=== PATIENT | female | born 1995 | race Caucasian/White ===

== ENCOUNTER 2016-10-10 07:21 | Emergency (ER) | payer BC, MEDICAID ==
[2016-10-10 07:34] VITALS: BP 106/65
[2016-10-10] MEDS ORDERED: predniSONE TAB* 20 MG PO ONE (07:47)
[2016-10-10] MEDS ORDERED: Albuterol/Ipratropium NEB.SOL* Albuterol 2.5 MG/Ipratropium 0.5 MG 3 ML INH ONE (07:47)
--- NOTE | 2016-10-10 07:57 | UC ---
Respiratory Complaint HPI - HPI Summary HPI Summary: coughing and wheezing for 3d. Started with malaise, SRINIVASAN, ST, body aches. Now sinus congestion and deep cough. Fevers, not measured. Poor appetite but is able to eat and drink. Has history of wheezing with URI's, no formal dx of asthma but uses prn inhaler. - History of Current Complaint Chief Complaint: UCGeneralIllness Stated Complaint: CHEST CONGESTION COUGH SORE THROAT Time Seen by Provider: 10/10/16 07:38 Hx Obtained From: Patient Hx Last Menstrual Period: 09/22/16 Onset/Duration: Gradual Onset Timing: Constant Severity Initially: Moderate Severity Currently: Moderate Character: Cough: Productive Aggravating Factors: Nothing Alleviating Factors: Bronchodilator - ran out Associated Signs And Symptoms: Positive: Dyspnea, Fever, Chills, Wheezing, URI, Nasal Congestion, Hoarseness - Risk Factors Pulmonary Embolism Risk Factors: Negative Cardiac Risk Factors: Negative Pseudomonas Risk Factors: Negative Tuberculosis Risk Factors: Negative - Allergies/Home Medications Allergies/Adverse Reactions: Allergies Allergy/AdvReac Type Severity Reaction Status Date / Time No Known Allergies Allergy Verified 10/10/16 07:27 PMH/Surg Hx/FS Hx/Imm Hx Endocrine History Of: Reports: Thyroid Disease, Hypothyroidism Denies: Diabetes Cardiovascular History Of: Denies: Hypertension, Pacemaker/ICD Respiratory History Of: Reports: Asthma - Surgical History Surgical History: None - Family History Known Family History: Positive: None Family History: no cardio-vascular issues reported in family lineage - Social History Occupation: Employed Full-time Lives: With Family Alcohol Use: Weekly Alcohol Amount: 4-5 drinks few drinks a month Substance Use Type: None Smoking Status (MU): Never Smoked Tobacco - Immunization History Most Recent Influenza Vaccination: 2014 Most Recent Tetanus Shot: utd Most Recent Pneumonia Vaccination: none Review of Systems Constitutional: Fever, Chills, Fatigue Skin: Negative Eyes: Negative ENT: Sore Throat, Nasal Discharge Respiratory: Shortness Of Breath, Cough Cardiovascular: Negative Gastrointestinal: Negative Genitourinary: Negative Motor: Negative Neurovascular: Negative Musculoskeletal: Negative Neurological: Headache Psychological: Negative All Other Systems Reviewed And Are Negative: Yes Physical Exam Triage Information Reviewed: Yes Appearance: Well-Appearing, No Pain Distress, Well-Nourished, Thin Vital Signs: Initial Vital Signs Temp 99.3 F 10/10/16 07:29 Pulse 92 10/10/16 07:29 Resp 18 10/10/16 07:29 BP 106/65 10/10/16 07:29 Pulse Ox 98 10/10/16 07:29 Vital Signs Reviewed: Yes Eye Exam: Normal Eyes: Positive: Conjunctiva Clear ENT: Positive: Hearing grossly normal, Pharynx normal, Nasal congestion, TMs normal, Muffled/hoarse voice - hoarse. Negative: Pharyngeal erythema, Tonsillar swelling, Tonsillar exudate Neck exam: Normal Neck: Positive: Supple Respiratory Exam: Normal Respiratory: Positive: No respiratory distress, No accessory muscle use, Rhonchi , Wheezing - diffuse. Negative: Crackles, Stridor Cardiovascular Exam: Normal Musculoskeletal Exam: Normal Neurological Exam: Normal Psychological Exam: Normal Skin Exam: Normal UC Diagnostic Evaluation - Laboratory O2 Sat by Pulse Oximetry: 98 Respiratory Course/Dx - Differential Dx/Diagnosis Differential Diagnosis/HQI/PQRI: Asthma, Bronchitis, Influenza, Lower Resp Infection, Sinusitis Provider Diagnoses: URI with bronchospasm Discharge - Discharge Plan Condition: Stable Disposition: HOME Prescriptions: Albuterol HFA INHALER* [Ventolin HFA Inhaler*] 1 - 2 puff INH Q4H PRN #1 mdi PRN Reason: Wheezing Guaifenesin-Codeine [Cheratussin AC] 1 - 2 syp PO Q4HR PRN #120 ml MDD 30ml PRN Reason: Cough predniSONE TAB* [Deltasone TAB*] 20 mg PO DAILY #9 tab Patient Education Materials: Upper Respiratory Infection (ED), Bronchospasm (ED ) Forms: *Work Release Referrals: No Primary Care Phys,NOPCP [Primary Care Provider] -
== END 2016-10-10 08:20 | disposition home or self-care (01) ==
LOC: UCEAST 07:21
DX: J06.9 Acute upper respiratory infection, unspecified (principal); J98.01 Acute bronchospasm
CPT/HCPCS: 99212; A9270-GY; G0463; J7512

== ENCOUNTER 2016-11-27 18:23 | Emergency (ER) | payer BC, MEDICAID ==
[2016-11-27 19:43] VITALS: BP 96/55
[2016-11-27] MEDS ORDERED: Ibuprofen TAB* 600 MG PO ONE (19:46)
--- NOTE | 2016-11-27 20:09 | UC ---
Upper Extremity HPI - HPI Summary HPI Summary: Large cardboard box full of gloves fell onto pt's R wrist while at work at [employer] earlier today. Pain and bruising, difficulty using hand. No hx of surgery or fx in that hand/wrist. - History of Current Complaint Chief Complaint: UCUpperExtremity Stated Complaint: HAND INJURY Time Seen by Provider: 11/27/16 19:51 Hx Obtained From: Patient Hx Last Menstrual Period: 10/13/16 ?: No Onset/Duration: Sudden Onset Severity Initially: Moderate Severity Currently: Moderate Location Of Pain: Is Discrete @ Character: Sharp, Stiffness Aggravating Factor(s): Movement, Lifting Alleviating Factor(s): Ice, Rest Related History: Dominant Hand Right - Allergies/Home Medications Allergies/Adverse Reactions: Allergies Allergy/AdvReac Type Severity Reaction Status Date / Time No Known Allergies Allergy Verified 11/27/16 19:43 PMH/Surg Hx/FS Hx/Imm Hx Endocrine History Of: Reports: Thyroid Disease - HYPOTHYROID, Hypothyroidism Denies: Diabetes Cardiovascular History Of: Denies: Hypertension, Pacemaker/ICD Respiratory History Of: Reports: Asthma - NOT OFFICIALLY DX - Surgical History Surgical History: Yes Surgery Procedure, Year, and Place: RENAL STENT 2009 - Family History Known Family History: Positive: None Family History: no cardio-vascular issues reported in family lineage - Social History Occupation: Employed Part-time Lives: With Family Alcohol Use: None Alcohol Amount: 3-4 DRINKS/WEEK Substance Use Type: None Smoking Status (MU): Never Smoked Tobacco - Immunization History Most Recent Influenza Vaccination: 2014 Most Recent Tetanus Shot: utd Most Recent Pneumonia Vaccination: none Review of Systems Constitutional: Negative Skin: Bruising Eyes: Negative ENT: Negative Respiratory: Negative Cardiovascular: Negative Gastrointestinal: Negative Genitourinary: Negative Motor: Negative Neurovascular: Negative Musculoskeletal: Arthralgia Neurological: Negative Psychological: Negative All Other Systems Reviewed And Are Negative: Yes Physical Exam Triage Information Reviewed: Yes Appearance: Well-Appearing, Well-Nourished, Pain Distress - mild Vital Signs: Initial Vital Signs Temp 97.9 F 11/27/16 19:40 Pulse 67 11/27/16 19:40 Resp 16 11/27/16 19:40 BP 96/55 11/27/16 19:40 Pulse Ox 100 11/27/16 19:40 Vital Signs Reviewed: Yes Eye Exam: Normal Eyes: Positive: Conjunctiva Clear ENT Exam: Normal ENT: Positive: Normal ENT inspection, Hearing grossly normal, Pharynx normal, TMs normal Dental Exam: Normal Respiratory Exam: Normal Respiratory: Positive: Chest non-tender, Lungs clear, Normal breath sounds, No respiratory distress, No accessory muscle use Cardiovascular Exam: Normal Cardiovascular: Positive: RRR, No Murmur Musculoskeletal: Positive: 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
--- NOTE | 2016-11-27 20:19 | RAD ---
Indication: Right wrist injury 3 views of the wrist demonstrates no fracture. No other bone or joint abnormality is identified. IMPRESSION: NO FRACTURE OF THE WRIST IS NOTED.
== END 2016-11-27 20:35 | disposition home or self-care (01) ==
LOC: UCEAST 18:23
DX: S60.211A Contusion of right wrist, initial encounter (principal); W20.8XXA Other cause of strike by thrown, projected or falling object, initial encounter; Y93.9 Activity, unspecified; Y92.511 Restaurant or cafe as the place of occurrence of the external cause; Y99.0 Civilian activity done for income or pay
CPT/HCPCS: 99212; A9270-GY; G0463

== ENCOUNTER 2017-08-04 11:53 | Emergency (ER) | payer BC ==
[2017-08-04 12:11] VITALS: BP 109/56
[2017-08-04] MEDS ORDERED: predniSONE TAB* 20 MG PO ONE (12:19)
[2017-08-04] MEDS ORDERED: Ipratropium 0.5MG/2.5ML NEB* 0.5 MG/2.5 ML NEB.SOLN INH ONE (12:19)
[2017-08-04] MEDS ORDERED: Albuterol 2.5 MG/3 ML NEB.SOL* (0.083%) INH ONE (12:19)
--- NOTE | 2017-08-04 12:19 | UC ---
Respiratory Complaint HPI - HPI Summary HPI Summary: 21 yo female with one day hx of cough/wheezing rescue inhaler not effective no f/c - History of Current Complaint Chief Complaint: UCRespiratory Stated Complaint: SOB Time Seen by Provider: 08/04/17 11:54 Hx Obtained From: Patient Hx Last Menstrual Period: 07/17/17 Onset/Duration: Gradual Onset, Lasting Hours Timing: Constant Severity Initially: Mild Severity Currently: Moderate Pain Intensity: 2 Pain Scale Used: 0-10 Numeric Character: Cough: Nonproductive Associated Signs And Symptoms: Positive: Wheezing, Nasal Congestion - Allergies/Home Medications Allergies/Adverse Reactions: Allergies Allergy/AdvReac Type Severity Reaction Status Date / Time No Known Environmental Allergy WHEEZING, Verified 08/04/17 12:15 Allergies SOB PMH/Surg Hx/FS Hx/Imm Hx Previously Healthy: Yes Endocrine History: Hypothyroidism Other Endocrine History: hosimoto's Respiratory History: Asthma, Pneumonia - Surgical History Surgical History: Yes Surgery Procedure, Year, and Place: RENAL STENT 2009 - Family History Known Family History: Positive: Respiratory Disease, Other - thyroid problems Family History: no cardio-vascular issues reported in family lineage - Social History Alcohol Use: None Alcohol Amount: 3-4 DRINKS/WEEK Substance Use Type: None Smoking Status (MU): Never Smoked Tobacco - Immunization History Most Recent Influenza Vaccination: 2014 Most Recent Tetanus Shot: utd Most Recent Pneumonia Vaccination: none Review of Systems Constitutional: Negative Skin: Negative Eyes: Negative ENT: Negative Respiratory: Shortness Of Breath, Cough Cardiovascular: Negative Gastrointestinal: Negative Genitourinary: Negative Motor: Negative Neurovascular: Negative Musculoskeletal: Negative Neurological: Negative Psychological: Negative Is Patient Immunocompromised?: No All Other Systems Reviewed And Are Negative: Yes Physical Exam Triage Information Reviewed: Yes Appearance: Well-Appearing, No Pain Distress, Well-Nourished Vital Signs: Initial Vital Signs Temp 98.4 F 08/04/17 12:00 Pulse 125 08/04/17 12:00 Resp 30 08/04/17 12:00 BP 109/56 08/04/17 12:00 Pulse Ox 99 08/04/17 12:00 Vital Signs Reviewed: Yes Eyes: Positive: Conjunctiva Clear ENT: Positive: Hearing grossly normal, Pharynx normal, TMs normal, Uvula midline. Negative: Nasal congestion, Trismus, Muffled voice, Hoarse voice, Dental tenderness, Sinus tenderness Neck: Positive: Supple, Nontender, No Lymphadenopathy Respiratory: Positive: Accessory muscle use, Wheezing Cardiovascular: Positive: No Murmur, Pulses Normal, Tachycardia Musculoskeletal: Positive: ROM Intact, No Edema Neurological: Positive: Alert Psychological Exam: Normal Skin Exam: Normal UC Diagnostic Evaluation - Laboratory O2 Sat by Pulse Oximetry: 99 - normal/not hypoxic Re-Evaluation - Re-Evaluation First Eval Re-Evaluation Time: 12:52 Change: Improved - lungs CTA Respiratory Course/Dx - Differential Dx/Diagnosis Provider Diagnoses: bronchospasm. viral URI Discharge - Discharge Plan Condition: Stable Disposition: HOME Prescriptions: Albuterol 2.5MG/3ML (0.083%)* [Ventolin 2.5 MG/3 ML NEB.SANTA*] 2.5 mg INH QID PRN #1 neb.santa PRN Reason: Wheezing Prednisone [Deltasone] 40 mg PO DAILY #8 tab Patient Education Materials: Bronchospasm (ED) Referrals: [facility] [Outside] - As Soon As Possible (you need to find an MD to better manage your asthma) Additional Instructions: recheck for new or worsening symptoms recheck in 4 days if not completely better
== END 2017-08-04 13:13 | disposition home or self-care (01) ==
LOC: UCEAST 11:53
DX: J06.9 Acute upper respiratory infection, unspecified (principal); E03.9 Hypothyroidism, unspecified; Z87.01 Personal history of pneumonia (recurrent); J98.01 Acute bronchospasm
CPT/HCPCS: 99212; G0463; J7512; J7644

== ENCOUNTER 2018-01-14 07:30 | Emergency (ER) | payer BC ==
[2018-01-14 07:42] VITALS: BP 119/63
[2018-01-14] MEDS ORDERED: predniSONE TAB* 20 MG PO ONE (07:51)
--- NOTE | 2018-01-14 07:58 | UC ---
Respiratory Complaint HPI - HPI Summary HPI Summary: Patient here accompanied by mom complaining of 3 days of productive cough, congestion, feeling of shortness of breath and wheezing. She does have asthma and uses albuterol at home. This has only been providing transient relief. She also complains of a "stinging" sensation in her abdomen and chest when she takes a deep breath and also has low back pain. She had a temperature of 102 yesterday. No nausea or vomiting. Saw her PCP at onset and was advised she likely had a viral respiratory infection. 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 Hx Last Menstrual Period: current Onset/Duration: Gradual Onset, Lasting Days, Still Present Timing: Constant Severity Initially: Moderate Severity Currently: Moderate Pain Intensity: 5 Pain Scale Used: 0-10 Numeric Character: Cough: Productive Aggravating Factors: Nothing Alleviating Factors: Nothing Associated Signs And Symptoms: Positive: Dyspnea, Fever, Chills, Pleuritic Chest Pain, Wheezing, URI, Nasal Congestion - Allergies/Home Medications Allergies/Adverse Reactions: Allergies Allergy/AdvReac Type Severity Reaction Status Date / Time No Known Allergies Allergy Verified 01/14/18 07:42 Home Medications: Home Medications Fexofenadine/Pseudoephedrine [Mikayla-D 24 Hour Tablet] 1 each PO DAILY PRN [History Confirmed 01/14/18] PMH/Surg Hx/FS Hx/Imm Hx Endocrine History: Hypothyroidism Respiratory History: Asthma - Surgical History Surgical History: Yes Surgery Procedure, Year, and Place: RENAL STENT (STONE) 2009 - Family History Known Family History: Positive: Hypertension, Respiratory Disease, Other - thyroid problems - Social History Alcohol Use: Occasionally Alcohol Amount: 3-4 DRINKS/WEEK Substance Use Type: None Smoking Status (MU): Never Smoked Tobacco - Immunization History Most Recent Influenza Vaccination: 2014 Most Recent Tetanus Shot: utd Most Recent Pneumonia Vaccination: none Review of Systems Constitutional: Fever, Chills, Fatigue ENT: Sore Throat, Nasal Discharge Respiratory: Shortness Of Breath, Cough, Other - wheeze Cardiovascular: Negative Gastrointestinal: Abdominal Pain Genitourinary: Dysuria Musculoskeletal: Myalgia Neurological: Headache All Other Systems Reviewed And Are Negative: Yes Physical Exam Triage Information Reviewed: Yes Appearance: Well-Appearing, No Pain Distress, Well-Nourished Vital Signs: Initial Vital Signs Temp 99.0 F 01/14/18 07:37 Pulse 80 01/14/18 07:37 Resp 16 01/14/18 07:37 BP 119/63 01/14/18 07:37 Pulse Ox 99 01/14/18 07:37 Vital Signs Reviewed: Yes Eyes: Positive: Conjunctiva Clear ENT: Positive: Hearing grossly normal, Pharynx normal, TMs normal - fluid behind left TM Neck: Positive: Supple, Nontender, Enlarged Nodes @ - mild right sided spfl cervical LAD Respiratory: Positive: No respiratory distress, No accessory muscle use, Decreased breath sounds, Wheezing - diffuse Cardiovascular Exam: Normal Abdomen Description: Positive: Nontender, Soft. Negative: CVA Tenderness (R), CVA Tenderness (L), Distended, Guarding Musculoskeletal: Positive: No Edema Neurological: Positive: Alert Psychological: Positive: Normal Response To Family, Age Appropriate Behavior Skin: Negative: rashes UC Diagnostic Evaluation - Laboratory O2 Sat by Pulse Oximetry: 99 Diagnostic Studies Comment: FLU NEG. URINE DIP SP. GR. 1.025, 3+ BLOOD (ON MENSES), TRACE PROTEIN Respiratory Course/Dx - Course Course Of Treatment: Patient is wheezy and tight on exam. She declines chest x- ray today. Flu swab negative. She does have some abdominal pain, back pain and mild dysuria. She is also currently on her menses which may be contributing to the symptoms. In any case urine dip was collected and not indicative of UTI. The blood in her urine sample is likely due to her menses. She has a history of kidney stones but states this does not feel like a kidney stone so will not explore this avenue further at this time. Will treat for asthma exacerbation due to likely viral respiratory infection. Follow-up with PCP if not improving as expected. - Differential Dx/Diagnosis Provider Diagnoses: ASTHMA EXACERBATION DUE TO ACUTE URI Discharge - Sign-Out/Discharge Documenting (check all that apply): Discharge - Discharge Plan Condition: Stable Disposition: HOME Prescriptions: predniSONE TAB* [Deltasone TAB*] 50 mg PO DAILY #4 tab Patient Education Materials: Asthma (ED), Upper Respiratory Infection (ED) Forms: *Work Release Referrals: Yana Sullivan MD [Primary Care Provider] - If Needed Additional Instructions: Flu swab today negative. Urine dip not indicative of urinary tract infection. Your symptoms are likely due to exacerbation of your asthma by an upper respiratory infection. No indication for antibiotics at this time. We'll continue prednisone for a 5 day total course. Rest, hydrate, OTC medications as needed for symptom management. Continue your albuterol as prescribed. Seek follow-up if you're not improving as expected over the next week or so. - Billing Disposition and Condition Condition: STABLE Disposition: HOME
== END 2018-01-14 08:45 | disposition home or self-care (01) ==
LOC: UCEAST 07:30
DX: J45.901 Unspecified asthma with (acute) exacerbation (principal); J06.9 Acute upper respiratory infection, unspecified; E03.9 Hypothyroidism, unspecified
CPT/HCPCS: 81003; 87502; 99212; G0463; J7512

== ENCOUNTER 2018-12-07 11:32 | Emergency (ER) | payer BC, MEDICAID ==
[2018-12-07] MEDS ORDERED: Ondansetron INJ* 2 MG/ML VIAL IV ONE (11:53)
[2018-12-07] MEDS ORDERED: NS 0.9% 1000 ML** 1,000 ML IV ONE ×2 (11:53→12:10)
--- NOTE | 2018-12-07 12:07 | ED ---
GI/ HPI - HPI Summary HPI Summary: Patient is a 23 y/o female who presents to the ED c/o N/V. Her sx began 10 days ago, 5 hours after landing in [facility] for a vacation. Patient first began with swelling of her tongue and lips, and subsequent anxiety. The next day she had severe N/V/D, mild cramping abdominal pain, body aches, fever of 100 degrees F, rhinorrhea, fatigue, decreased appetite, diaphoresis, and paresthesia of her hands, legs, and feet. Patient also notes a burning sensation to the back of her head. She had one episode of projectile vomiting. Patient is no longer having diarrhea, and is now constipated. She used an enema this morning without relief. She denies any cough, congestion, or blood/mucus in her stool. Her current pain is rated a 7/10 in severity. While in [facility] she went to an and was given IV fluids, 60 mg Prednisone, and Amoxycillin. Patient has not been able to take these medications due to her severe nausea. Patient has also taken Zofran without relief. She returned to the [facility] 3 days ago and went to the , where she was given IV fluids and Zofran. Lab work was normal except for a calcium of 7.7, and the malaria screen was negative. Patient has a current stool sample available. Nobody else she traveled with was sick. She denies any prior abdominal surgeries. Vaccinations UTD. LNMP 1 month ago. 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 Negative: Blood w/Stool, Cough Additional Signs & Symptoms: Positive: Recent Travel - [facility] Aggravating Factor(s): Nothing Alleviating Factor(s): Nothing - Allergy/Home Medications Allergies/Adverse Reactions: Allergies Allergy/AdvReac Type Severity Reaction Status Date / Time No Known Allergies Allergy Verified 12/07/18 11:50 Home Medications: Home Medications Loratadine [Claritin] 10 mg PO DAILY 12/07/18 [History Confirmed 12/07/18] PMH/Surg Hx/FS Hx/Imm Hx Endocrine/Hematology History: Reports: Hx Thyroid Disease - HYPOTHYROID Denies: Hx Diabetes, Hx Anemia Cardiovascular History: Denies: Hx Hypertension, Hx Pacemaker/ICD Respiratory History: Reports: Hx Asthma History: Denies: Hx Renal Disease - STONES ONLY Sensory History: Denies: Hx Hearing Aid Psychiatric History: Reports: Hx Panic Disorder - Surgical History Surgery Procedure, Year, and Place: RENAL STENT (STONE) 2009 Infectious Disease History: No Infectious Disease History: Reports: Traveled Outside the [place] in Last 30 Days - [facility] Denies: History Other Infectious Disease - Family History Known Family History: Positive: Hypertension, Respiratory Disease, Other - thyroid problems - Social History Alcohol Use: Occasionally Alcohol Amount: 3-4 DRINKS/WEEK Hx Substance Use: No Substance Use Type: Reports: None Hx Tobacco Use: No Smoking Status (MU): Never Smoked Tobacco Review of Systems Positive: Fever, Fatigue, Skin Diaphoresis, Other - body aches, decreased appetite Positive: Nasal Discharge. Negative: Other - congestion Negative: Cough Positive: Abdominal Pain - cramping, Vomiting, Diarrhea, Nausea, Other - constipation, NEGATIVE: bloody/mucus stool Positive: Edema - mouth and lips Neurological: Other - burning sensation to back of head Positive: Paresthesia - legs, hands, feet Positive: Anxious - panic attacks All Other Systems Reviewed And Are Negative: Yes Physical Exam - Summary Physical Exam Summary: Appearance: ill appearing, no pain distress, generalized weakness Skin: warm, dry, pale Head/face: normal Eyes: EOMI, JAMES ENT: mucous membranes moist Neck: supple, non-tender Respiratory: CTA, breath sounds present Cardiovascular: RRR, pulses symmetrical Abdomen: non-tender, soft Bowel Sounds: present Musculoskeletal: normal, strength/ROM intact Neuro: normal, sensory motor intact, A&Ox3 Triage Information Reviewed: Yes Vital Signs On Initial Exam: Initial Vitals Temp Pulse Resp BP Pulse Ox 99.1 F 77 16 117/49 100 12/07/18 11:44 12/07/18 11:44 12/07/18 11:44 12/07/18 11:44 12/07/18 11:44 Vital Signs Reviewed: Yes Diagnostics - Vital Signs Vital Signs Temp Pulse Resp BP Pulse Ox 12/07/18 11:44 99.1 F 77 16 117/49 100 - Laboratory Result Diagrams: 12/07/18 12:01 12/07/18 12:01 Lab Statement: Any lab studies that have been ordered have been reviewed, and results considered in the medical decision making process. Re-Evaluation - Re-Evaluation First Eval Re-Evaluation Time: 13:30 Change: Improved Comment: Pt feels better now. GIGU Course/Dx - Course Course Of Treatment: Nurse's notes reviewed. Patient with complaint of nausea vomiting and diarrhea that receipted her trip to [facility]. She had symptoms throughout her stay there without any real exposures given that she had stay inside most the time. She had negative malaria screen done in urgent care. Her laboratories today have normalized including a calcium which was previously low. She felt much better after 2 L fluid, Reglan and IV Dramamine. Stool at this time is formed. She appears to be on the upside of this. She was discharged in good condition to follow closely with her primary care physician. - Diagnoses Differential Diagnoses - Female: Other - Viral versus bacterial gastroenteritis , giardiasis, amoebic infection, malaria, dengue fever, influenza, other tropical illness Provider Diagnoses: Gastroenteritis Discharge - Sign-Out/Discharge Documenting (check all that apply): Patient Departure - Discharge Patient Received Moderate/Deep Sedation with Procedure: No - Discharge Plan Condition: Improved Disposition: HOME Prescriptions: Promethazine TAB* [Phenergan Tab*] 25 mg PO Q6H PRN #20 tab PRN Reason: Nausea Patient Education Materials: Gastroenteritis (ED) Forms: *Work Release Referrals: Yana Sullivan MD [Primary Care Provider] - Additional Instructions: Drink plenty of fluids. Gatorade G2 or vitamin water may help. Prescribed medication along with Benadryl as needed. This will cause drowsiness. Do not drive while taking. Return if worse, unable to keep down fluids, new symptoms or other concerns. Call today to schedule prompt follow-up with your doctor. - Billing Disposition and Condition Condition: IMPROVED Disposition: Home - Attestation Statements Document Initiated by Scribe: Yes Documenting Scribe: Marguerite Pierre Provider For Whom Scribe is Documenting (Include Credential): Yadiel Rabago MD Scribe Attestation: I, Marguerite Azari, scribed for Yadiel Rabago MD on 12/07/18 at 1444. Scribe Documentation Reviewed: Yes Provider Attestation: The documentation as recorded by the Marguerite jiménez accurately reflects the service I personally performed and the decisions made by , Yadiel Rabago MD Status of Scribe Document: Viewed
[2018-12-07] MEDS ORDERED: DiMENhydriNATE IV* 50 MG/ML VIAL IV PUSH ONE (12:10)
[2018-12-07] MEDS ORDERED: Metoclopramide IV* 5 MG/ML 2 ML VIAL IV ONE (12:10)
[2018-12-07 12:12] LABS: ABS Basophils 0 10^3/ul (0-0.2); ABS Eosinophils 0.3 10^3/ul (0-0.6); ABS Lymphocytes 1.6 10^3/ul (1.0-4.8); ABS Monocytes 0.7 10^3/ul (0-0.8); ABS Nucleated RBC 0 10^3/ul; Eosinophil % 3.5 %; Hematocrit 41 % (35-47); Hemoglobin 14.1 g/dl (12.0-16.0); Lymphocyte % 18.5 %; Mean Corpuscular HGB Conc 34 g/dl (31-36); Mean Corpuscular Hemoglobin 30 pg (27-31); Mean Corpuscular Volume 88 fL (80-97); Mean Platelet Volume 7.3 fL (7.4-10.4); Nucleated Red Blood Cells % 0.1; Platelet Count 284 10^3/ul (150-450); Red Blood Count 4.69 10^6/ul (4.00-5.40); Red Cell Distribution Width 12 % (10.5-15); White Blood Count 8.5 10^3/ul (3.5-10.8)
[2018-12-07 12:30] LABS: ALT 21 U/L (7-52); AST 15 U/L (13-39); Albumin 4.2 g/dL (3.2-5.2); Albumin/Globulin Ratio 1.6 (1-3); Alkaline Phosphatase 51 U/L (34-104); Anion Gap 7 mmol/L (2-11); BUN/Creatinine Ratio 16.7 (8-20); Blood Urea Nitrogen 10 mg/dL (6-24); C Reactive Protein 2.17 mg/L (<8.01); CO2 Carbon Dioxide 26 mmol/L (22-32); Chloride 103 mmol/L (101-111); EGFR African American 148.6 (>60); EGFR Non-African American 122.8 (>60); Globulin 2.6 g/dL (2-4); Glucose 84 mg/dL (70-100); Potassium 3.7 mmol/L (3.5-5.0); Sodium 136 mmol/L (135-145); Total Protein 6.8 g/dL (6.4-8.9)
[2018-12-07 12:35] LABS: HCG Pregnancy < 0.60 mIU/mL
[2018-12-07 12:57] LABS: Influenza A Molecular NEGATIVE (Negative); Influenza B Molecular NEGATIVE (Negative)
[2018-12-07 14:07] VITALS: BP 110/69
[2018-12-07 14:14] LABS: Urine Appearance Clear; Urine Bilirubin Negative (Negative); Urine Blood Negative (Negative); Urine Color Straw; Urine Glucose Negative (Negative); Urine Ketones 1+ (Negative); Urine Nitrite Negative (Negative); Urine Protein Negative (Negative); Urine Specific Gravity 1.006 (1.010-1.030); Urine Urobilinogen Negative (Negative)
[2018-12-07 14:30] LABS: TSH (Thyroid Stimulating Horm) 1.35 mcIU/mL (0.34-5.60)
--- NOTE | 2018-12-08 06:20 | PN ---
Progress Note - Progress Note Date of Service: 12/07/18 Note: C. difficile positive Patient please on metronidazole prior to discharge This is appropriate treatment nothing further is needed at this time
== END 2018-12-07 14:08 | disposition home or self-care (01) ==
LOC: ED 11:32
DX: K52.9 Noninfective gastroenteritis and colitis, unspecified (principal); A04.72 Enterocolitis due to Clostridium difficile, not specified as recurrent; E03.9 Hypothyroidism, unspecified; J45.909 Unspecified asthma, uncomplicated; F41.0 Panic disorder [episodic paroxysmal anxiety]
CPT/HCPCS: 36415; 80053; 81003; 83605; 83690; 84443; 84702; 85025; 86140; 87045; 87046; 87493; 87651; 87899; 96361; 96374; 96375; 99283; J1240; J2765

== ENCOUNTER 2018-12-09 01:52 | Emergency (ER) | payer BC, MEDICAID ==
[2018-12-09] MEDS ORDERED: LORazepam INJ* 2 MG/ML 1 ML VIAL IV PUSH ONE (02:16)
[2018-12-09] MEDS ORDERED: NS 0.9% 1000 ML** 1,000 ML IV ONE (02:16)
--- NOTE | 2018-12-09 02:33 | ED ---
Complex/Multi-Sys Presentation - HPI Summary HPI Summary: This pt is a 23 y/o female presenting to [facility] c/o tongue swelling, throat swelling, abd pain since 01:30 today. Pt reports she woke up around 01:30 today with tongue swelling. She states she also feels her throat is swollen, stomach feels "like is on fire," and her face feels hot. 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 Pt states she went to [facility] on 11/27/18 and upon arriving she developed facial and tongue swelling. She notes this swelling kept up until 12/01/18 and that's when she went to a local clinic. Pt was prescribed Prednisone and Amoxicillin. She returned to the [facility] on 12/04/18. On 12/07/18 pt came to the ED for nausea, vomiting, and diarrhea and was diagnosed with gastroenteritis. Pt notes she was told to stop amoxicillin. She was prescribed Flagyl. Pt reports she has been taking Flagyl 4 days ago, but EMR shows pt started taking Flagyl 2 days ago. Her last dose of Flagyl was last night (12/08/18) prior to going to bed. Currently she notes she is constipated now. Denies nausea, vomiting, diarrhea. PMHx includes anxiety. - History Of Current Complaint Chief Complaint: EDGeneral Time Seen by Provider: 12/09/18 02:08 Hx Obtained From: Patient Onset/Duration: Sudden Onset, Still Present Timing: Constant Severity Currently: Mild Location: Pain At: - abdomen Character: Unable To Describe - OTHER: burning sensation Aggravating Factor(s): nothing Alleviating Factor(s): nothing Associated Signs And Symptoms: Positive: Abdominal Pain, Other - POS: tongue swelling, throat swelling, face feels hot. Negative: Nausea, Vomiting, Diarrhea , Fever - Allergies/Home Medications Allergies/Adverse Reactions: Allergies Allergy/AdvReac Type Severity Reaction Status Date / Time No Known Allergies Allergy Verified 12/09/18 02:00 PMH/Surg Hx/FS Hx/Imm Hx Endocrine/Hematology History: Reports: Hx Thyroid Disease - HYPOTHYROID Denies: Hx Diabetes, Hx Anemia Cardiovascular History: Denies: Hx Hypertension, Hx Pacemaker/ICD Respiratory History: Reports: Hx Asthma History: Denies: Hx Renal Disease - STONES ONLY Sensory History: Denies: Hx Hearing Aid Psychiatric History: Reports: Hx Panic Disorder - Surgical History Surgery Procedure, Year, and Place: RENAL STENT (STONE) 2009 Infectious Disease History: No Infectious Disease History: Reports: Traveled Outside the [place] in Last 30 Days Denies: History Other Infectious Disease - Family History Known Family History: Positive: Hypertension, Respiratory Disease, Other - thyroid problems - Social History Alcohol Use: Occasionally Alcohol Amount: 3-4 DRINKS/WEEK Hx Substance Use: No Substance Use Type: Reports: None Hx Tobacco Use: No Smoking Status (MU): Never Smoked Tobacco Review of Systems Negative: Fever ENT: Other - POS: tongue swelling, throat swelling, face feels hot Gastrointestinal: Other - POS: constipation Positive: Abdominal Pain. Negative: Vomiting, Diarrhea, Nausea All Other Systems Reviewed And Are Negative: Yes Physical Exam - Summary Physical Exam Summary: VITAL SIGNS: Reviewed. GENERAL: Patient is a well-developed and nourished female who is lying comfortable in the stretcher. Patient is not in any acute respiratory distress. HEAD AND FACE: No signs of trauma. No ecchymosis, hematomas or skull depressions. No sinus tenderness. EYES: PERRLA, EOMI x 2, No injected conjunctiva, no nystagmus. EARS: Hearing grossly intact. Ear canals and tympanic membranes are within normal limits. MOUTH: Oropharynx within normal limits. NECK: Supple, trachea is midline, no adenopathy, no JVD, no carotid bruit, no c- spine tenderness, neck with full ROM. CHEST: Symmetric, no tenderness at palpation LUNGS: Clear to auscultation bilaterally. No wheezing or crackles. CVS: Regular rate and rhythm, S1 and S2 present, no murmurs or gallops appreciated. ABDOMEN: Soft, non-tender. No signs of distention. No rebound no guarding, and no masses palpated. Bowel sounds are normal. EXTREMITIES: FROM in all major joints, no edema, no cyanosis or clubbing. NEURO: Alert and oriented x 3. No acute neurological deficits. Speech is normal and follows commands. SKIN: Dry and warm Triage Information Reviewed: Yes Vital Signs On Initial Exam: Initial Vitals Temp Pulse Resp BP Pulse Ox 99.1 F 88 20 118/82 97 12/09/18 01:54 12/09/18 01:54 12/09/18 01:54 12/09/18 01:54 12/09/18 01:54 Vital Signs Reviewed: Yes Diagnostics - Vital Signs Vital Signs Temp Pulse Resp BP Pulse Ox 12/09/18 01:54 99.1 F 88 20 118/82 97 - Laboratory Result Diagrams: 12/09/18 02:26 12/09/18 02:26 Lab Statement: Any lab studies that have been ordered have been reviewed, and results considered in the medical decision making process. - EKG 03:36 Cardiac Rate: NL - at 65 bpm EKG Rhythm: Sinus Rhythm Summary of EKG Findings: Normal axis. Normal interval. No ischemic changes. Re-Evaluation - Re-Evaluation First Eval Re-Evaluation Time: 03:50 Change: Improved Comment: Pt reports feeling better after GI cocktail. Reviewed lab results with pt and father. She will be discharged home with follow up from PCP. Complex Multi-Symp Course/Dx Assessment/Plan: Pt is a 23 y/o female who presents with tongue swelling, throat swelling, abd pain since 01:30 today. Pt reports she woke up around 01: 30 today with tongue swelling. She states she also feels her throat is swollen, stomach feels "like is on fire," and her face feels hot. 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 Pt had a similar episode while in [facility] on 11/27/18. Blood work is unremarkable. In the ED course the pt was given IV fluids, Ativan, Protonix , Maalox, lidocaine viscous. On re-eval pt is feeling better after GI cocktail. Pt will be discharged home with follow up from her PCP. She was given a prescription for Protonix. Pt was instructed to return to the ED for any worsening or new symptoms. - Diagnoses Provider Diagnoses: GERD (gastroesophageal reflux disease), Anxiety Discharge - Sign-Out/Discharge Documenting (check all that apply): Patient Departure - Discharge home Patient Received Moderate/Deep Sedation with Procedure: No - Discharge Plan Condition: Stable Disposition: HOME Prescriptions: Pantoprazole TAB * [Protonix TAB*] 40 mg PO DAILY #30 tab Patient Education Materials: Gastroesophageal Reflux Disease (ED), Anxiety (ED) Referrals: Yana Sullivan MD [Primary Care Provider] - Additional Instructions: PLEASE FOLLOW UP WITH YOUR PRIMARY CARE PROVIDER IN 1-2 DAYS. RETURN TO THE EMERGENCY DEPARTMENT FOR CHANGING OR WORSENING SYMPTOMS. - Attestation Statements Document Initiated by Scribe: Yes Documenting Scribe: Madelin Field Provider For Whom Scribe is Documenting (Include Credential): Mandi Covington MD Scribe Attestation: Madelin Flowers, scribed for Mandi Covington MD on 12/09/18 at 0409. Status of Scribe Document: Ready
[2018-12-09 02:34] LABS: ABS Basophils 0 10^3/ul (0-0.2); ABS Eosinophils 0.5 10^3/ul (0-0.6); ABS Monocytes 0.6 10^3/ul (0-0.8); ABS Neutrophils 3.3 10^3/ul (1.5-7.7); ABS Nucleated RBC 0 10^3/ul; Eosinophil % 7.7 %; Hematocrit 39 % (35-47); Hemoglobin 13.3 g/dl (12.0-16.0); Lymphocyte % 30.2 %; Mean Corpuscular HGB Conc 34 g/dl (31-36); Mean Corpuscular Hemoglobin 30 pg (27-31); Mean Corpuscular Volume 87 fL (80-97); Mean Platelet Volume 7.4 fL (7.4-10.4); Nucleated Red Blood Cells % 0; Platelet Count 271 10^3/ul (150-450); Red Blood Count 4.52 10^6/ul (4.00-5.40); Red Cell Distribution Width 12 % (10.5-15); White Blood Count 6.5 10^3/ul (3.5-10.8)
[2018-12-09] MEDS ORDERED: Al Hydrox/Mg Hydrox/Simet LIQ* 30 ML UDC PO ONE (03:05)
[2018-12-09] MEDS ORDERED: Pantoprazole IV* 40 MG IV ONE (03:06)
[2018-12-09] MEDS ORDERED: Lidocaine 2% VISCOUS* 15 ML UDC PO ONE (03:06)
[2018-12-09 03:11] LABS: ALT 22 U/L (7-52); AST 16 U/L (13-39); Albumin 4.1 g/dL (3.2-5.2); Albumin/Globulin Ratio 1.6 (1-3); Alkaline Phosphatase 46 U/L (34-104); Anion Gap 7 mmol/L (2-11); Blood Urea Nitrogen 13 mg/dL (6-24); CO2 Carbon Dioxide 25 mmol/L (22-32); Chloride 106 mmol/L (101-111); EGFR African American 143.1 (>60); EGFR Non-African American 118.3 (>60); Globulin 2.5 g/dL (2-4); Glucose 99 mg/dL (70-100); Potassium 3.6 mmol/L (3.5-5.0); Sodium 138 mmol/L (135-145); Total Protein 6.6 g/dL (6.4-8.9)
[2018-12-09 03:18] LABS: HCG Pregnancy < 0.60 mIU/mL
[2018-12-09 04:21] VITALS: BP 118/76
== END 2018-12-09 04:20 | disposition home or self-care (01) ==
LOC: ED 01:52
DX: K21.9 Gastro-esophageal reflux disease without esophagitis (principal); F41.9 Anxiety disorder, unspecified; J45.909 Unspecified asthma, uncomplicated; E03.9 Hypothyroidism, unspecified; Z87.442 Personal history of urinary calculi
CPT/HCPCS: 36415; 80053; 83735; 84702; 85025; 93005; 96361; 96374; 96375; 99283; A9270-GY; J2060

== ENCOUNTER 2019-04-18 08:19 | Emergency (ER) | payer BC, MEDICAID ==
[2019-04-18 08:43] VITALS: BP 116/79
--- NOTE | 2019-04-18 11:23 | UC ---
Psychiatric Complaint HPI - HPI Summary HPI Summary: Last night had 5-6 episodes of sensation of swollen tongue followed by panic attack that lasted for about 10 minutes. After several hours the swelling in her tongue would subside. Patient has a long history of underlying anxiety and has been on SSRIs in the past. She has not had any medication or counseling for several years. Is currently very stressed. Had similar symptoms a few months ago and was treated with IV fluids and prednisone. Prednisone caused worsening panic. She denies any respiratory distress. She does have asthma and feels slightly wheezy but no increasing cough or shortness of breath. At the time of exam she has no swelling of the tongue or lips. No rash. No fever. - History Of Current Complaint Chief Complaint: UCGeneralIllness Stated Complaint: UNWELL Time Seen by Provider: 04/18/19 09:46 Hx Obtained From: Patient, Family/Toll Bridge Operator - MOM Hx Last Menstrual Period: 04/10/19 Onset/Duration: Sudden Onset, Resolved Timing: Intermittent Episode Lasting Severity Initially: Moderate Severity Currently: Mild Character: Anxious Aggravating Factor(s): Recent Stress Alleviating Factor(s): Nothing Associated Signs And Symptoms: Negative - Allergies/Home Medications Allergies/Adverse Reactions: Allergies Allergy/AdvReac Type Severity Reaction Status Date / Time No Known Allergies Allergy Verified 04/18/19 08:33 Home Medications: Home Medications Ibuprofen TAB* [Motrin TAB* 400 MG] 400 mg PO ONCE 04/18/19 [History Confirmed 04/18/19] Levocetirizine Dihydrochloride [Xyzal] 5 mg PO DAILY 04/18/19 [History Confirmed 04/18/19] diphenhydrAMINE HCl [Benadryl Allergy 25 MG CAP] 25 mg PO ONCE 04/18/19 [ History Confirmed 04/18/19] PMH/Surg Hx/FS Hx/Imm Hx Endocrine History: Hypothyroidism Respiratory History: Asthma Psychological History: Anxiety - Surgical History Surgical History: Yes Surgery Procedure, Year, and Place: RENAL STENT (STONE) 2009 - Family History Known Family History: Positive: Hypertension, Respiratory Disease, Other - thyroid problems - Social History Alcohol Use: None Alcohol Amount: 3-4 DRINKS/WEEK Substance Use Type: None Smoking Status (MU): Never Smoked Tobacco - Immunization History Most Recent Influenza Vaccination: 2014 Most Recent Tetanus Shot: utd Most Recent Pneumonia Vaccination: none Review of Systems All Other Systems Reviewed And Are Negative: Yes Constitutional: Positive: Negative Skin: Positive: Negative ENT: Positive: Other - TONGUE SWELLING - NOW RESOLVED Respiratory: Positive: Negative Cardiovascular: Positive: Negative Gastrointestinal: Positive: Negative Psychological: Positive: Anxious Physical Exam Triage Information Reviewed: Yes Appearance: No Pain Distress, Well-Nourished, Other: - ANXIOUS, EMOTIONALLY LABILE Vital Signs: Initial Vital Signs Temp 98.7 F 04/18/19 08:36 Pulse 71 04/18/19 08:36 Resp 18 04/18/19 08:36 BP 116/79 04/18/19 08:36 Pulse Ox 99 04/18/19 08:36 Vital Signs Reviewed: Yes Eyes: Positive: Conjunctiva Clear ENT: Positive: Hearing grossly normal Neck: Positive: Supple, Nontender, No Lymphadenopathy Respiratory: Positive: No respiratory distress, No accessory muscle use, Wheezing - MINIMAL LEFT LOWER LUNG. Negative: Decreased breath sounds Cardiovascular Exam: Normal Abdomen Description: Positive: Soft Musculoskeletal: Positive: No Edema Neurological: Positive: Alert Psychological: Positive: Normal Response To Family, Age Appropriate Behavior Skin: Negative: Rashes Psych Complaint Course/Dx - Course Course Of Treatment: UPON FURTHER DISCUSSION IT SEEMS LIKELY THAT INDIGO'S SYMPTOMS ARE MORE RELATED TO ANXIETY AND ASTHMA THAN TO ANYTHING ALLERGIC. SHE IS CURRENTLY IN THE PROCESS OF BEING EVALUATED FOR ALLERGIES BY AN REACH LIFT TRUCK DRIVER WHICH I ENCOURAGED HER TO CONTINUE. I THINK SHE WOULD BENEFIT GREATLY FROM DAILY PROPHYLACTIC MEDICATION FOR ANXIETY SUCH LEXAPRO WELL RESUMING HER COUNSELING SESSIONS. AT THE TIME OF EXAM SHE HAS NO ANGIOEDEMA OR RASH. HER VITAL SIGNS ARE STABLE AND SHE IS BREATHING EASILY. SHE DOES HAVE A SMALL WHEEZE IN HER LEFT LOWER LUNG WHICH IS LIKELY DUE TO HER ASTHMA. SHE DECLINES A NEB TREATMENT HERE IN THE AND STATES SHE WILL USE HER OWN NEBULIZER MACHINE WHEN SHE GETS HOME TODAY. PATIENT HAS ADVERSE REACTION TO PREDNISONE SO WILL NOT PRESCRIBE ANY STEROIDS TODAY. ADVISED TO GO TO THE ER WITHOUT FAIL IF SHE DEVELOPS ANY RESPIRATORY DISTRESS, SHORTNESS OF BREATH, FEVER OR ANY OTHER CONCERNING SYMPTOMS. - Differential Dx/Diagnosis Provider Diagnosis: Anxiety, Asthma Discharge - Sign-Out/Discharge Documenting (check all that apply): Patient Departure All imaging exams completed and their final reports reviewed: No Studies - Discharge Plan Condition: Stable Disposition: HOME Prescriptions: ALPRAZolam TAB* [Xanax TAB*] 0.25 mg PO TID PRN #20 tab MDD 0.75mg PRN Reason: Anxiety Patient Education Materials: Anxiety (ED) Referrals: Yana Sullivan MD [Primary Care Provider] - (KEEP YOUR APPT THIS WEEK) Additional Instructions: IT'S POSSIBLY YOUR SYMPTOMS ARE A MANIFESTATION OF YOUR ANXIETY. I WOULD STRONGLY RECOMMEND YOU DISCUSS WITH YOUR PRIMARY CARE PROVIDER STARTING A DAILY MEDICATION SUCH LEXAPRO TO HELP EVEN OUT YOUR SYMPTOMS ON A DAY TO DA BASIS. WILL GIVE A SHORT COURSE OF XANAX TO USE IN THE INTERIM FOR ACUTE EPISODES OF ANXIETY. BE AWARE THAT THIS MEDICATION CAN BE HABIT FORMING AND SEDATING. CERTAINLY I THINK IT IS PRUDENT THAT YOU CONTINUE YOUR EVALUATION BY YOUR REACH LIFT TRUCK DRIVER AND LOOK INTO OTHER UNDERLYING CAUSES OF YOUR SYMPTOMS. AT THIS MOMENT THERE SEEMS TO BE NO INDICATION OF ALLERGIC REACTION AND NO ACUTE INTERVENTION IS INDICATED. YOUR ASTHMA MAY BE FLARING UP. YOU DID HAVE A SMALL WHEEZE IN YOUR LEFT LOWER LUNG. USE YOUR ALBUTEROL NEBULIZER AND INHALER PRESCRIBED. GO TO THE ER WITHOUT FAIL IF YOU DEVELOP ANY SHORTNESS OF BREATH , RESPIRATORY DISTRESS OR OTHER CONCERNING SYMPTOMS. CONSIDER FOLLOWING UP WITH [facility] WELL I FEEL YOU MAY BENEFIT FROM COUNSELING WELL MEDICATION MANAGEMENT. [facility] Address: [address] [place] [address] - Billing Disposition and Condition Condition: STABLE Disposition: Home
== END 2019-04-18 10:38 | disposition home or self-care (01) ==
LOC: UCEAST 08:19
DX: F41.9 Anxiety disorder, unspecified (principal); J45.909 Unspecified asthma, uncomplicated; E03.9 Hypothyroidism, unspecified
CPT/HCPCS: 99212; G0463

== ENCOUNTER 2019-08-27 15:58 | Emergency (ER) | payer BC, MEDICAID ==
[2019-08-27 16:15] VITALS: BP 112/57
[2019-08-27] MEDS ORDERED: Tetan/Diph/Pertus SYR(Tdap)* 0.5 ML SYR(BOOSTRIX) use SYR contains LATEX IM ONE (16:36)
--- NOTE | 2019-08-27 16:37 | UC ---
Skin Complaint HPI - HPI Summary HPI Summary: 23 yo kiki with superficial lac to left hand with laron chicken wire today; wound well cleansed. Comes because she has not had an adult tetanus booster. - History of Current Complaint Chief Complaint: UCLaceration Time Seen by Provider: 08/27/19 16:29 Stated Complaint: CUT BY LARON WIRE Hx Obtained From: Patient Hx Last Menstrual Period: 2 wks ago Onset/Duration: Sudden Onset, Lasting Hours Skin Exposure Onset/Duration: Hours Ago Timing: Constant Onset Severity: Mild Current Severity: Mild Pain Intensity: 3 Location: Hand (Left) Aggravating Factor(s): Touch Alleviating Factor(s): OTC Meds - used topical antibiotic Associated Signs & Symptoms: Positive: Negative Related History: Trauma - Allergy/Home Medications Allergies/Adverse Reactions: Allergies Allergy/AdvReac Type Severity Reaction Status Date / Time No Known Allergies Allergy Verified 08/27/19 16:15 Home Medications: Home Medications Escitalopram Oxalate [Lexapro 10 mg] 1 tab PO DAILY 08/27/19 [History Confirmed 08/27/19] PMH/Surg Hx/FS Hx/Imm Hx Previously Healthy: Yes Endocrine History: Hypothyroidism Psychological History: Anxiety, Depression - Surgical History Surgical History: Yes Surgery Procedure, Year, and Place: RENAL STENT (STONE) 2009 - Family History Known Family History: Positive: Hypertension, Respiratory Disease, Non- Contributory - Social History Occupation: Employed Full-time Lives: With Family Alcohol Use: Occasionally Alcohol Amount: 3-4 DRINKS/WEEK Substance Use Type: None Smoking Status (MU): Never Smoked Tobacco - Immunization History Most Recent Influenza Vaccination: 2014 Most Recent Tetanus Shot: more then 10 years Most Recent Pneumonia Vaccination: none Review of Systems All Other Systems Reviewed And Are Negative: Yes Constitutional: Positive: Negative Skin: Positive: Other - superficial abrasion. Eyes: Positive: Negative ENT: Positive: Negative Respiratory: Positive: Negative Cardiovascular: Positive: Negative Gastrointestinal: Positive: Negative Genitourinary: Positive: Negative Motor: Positive: Negative Neurovascular: Positive: Negative Musculoskeletal: Positive: Negative Neurological: Positive: Negative Psychological: Positive: Negative Is Patient Immunocompromised?: No Physical Exam Triage Information Reviewed: Yes Appearance: Well-Appearing, No Pain Distress Vital Signs: Initial Vital Signs Temp 98.2 F 08/27/19 16:10 Pulse 83 08/27/19 16:10 Resp 12 08/27/19 16:10 BP 112/57 08/27/19 16:10 Pulse Ox 99 08/27/19 16:10 ENT: Positive: Normal ENT inspection Neck exam: Normal Respiratory Exam: Normal Cardiovascular: Positive: RRR, No Murmur Skin Exam: Other - approximately 1 cm superficial abrasion of the left hand between the 3rd and 4th mcp joints. Course/Dx - Course Course Of Treatment: Continue topical antibiotic ointment. Boostrix given. - Differential Diagnoses - Skin Complaint Differential Diagnoses: Other - hand abrasion. - Diagnoses Provider Diagnosis: Abrasion of left hand Discharge ED - Sign-Out/Discharge Documenting (check all that apply): Patient Departure All imaging exams completed and their final reports reviewed: No Studies - Discharge Plan Condition: Good Disposition: HOME Patient Education Materials: Diphtheria/Acellular Pertussis/Tetanus Vaccine ( By injection), Abrasion (ED) Referrals: Yana Sullivan MD [Primary Care Provider] - Additional Instructions: Continue use of topical antibiotic ointment to the left hand abrasion. You have had a [id number] booster today--effective for 10 years. - Billing Disposition and Condition Condition: GOOD Disposition: Home
== END 2019-08-27 17:05 | disposition home or self-care (01) ==
LOC: UCEAST 15:58
DX: S60.512A Abrasion of left hand, initial encounter (principal); W26.8XXA Contact with other sharp object(s), not elsewhere classified, initial encounter; Y92.9 Unspecified place or not applicable
CPT/HCPCS: 90471; 90715; 99211; G0463